=== PATIENT | male | born 1970 | race Caucasian/White ===

== ENCOUNTER 2025-06-10 12:13 | Inpatient (IN) | payer BC ==
[~2025-06-10] VITALS: Ht 175.3 cm; Wt 119.3 kg
[2025-06-10 12:16] VITALS: O2SAT 99
[2025-06-10] MEDS: ACETAMINOPHEN 500MG TABLET PO ONE (12:56)
[2025-06-10 13:24] LABS: BASOPHILS % 1.4 % (0.0-2.0); EOSINOPHILS % 1.1 % (0.0-5.0); HEMATOCRIT. 46.9 % (42.0-52.0); HEMOGLOBIN. 15.8 g/dL (14.0-18.0); LYMPHOCYTES % 25.2 % (20.0-50.0); MEAN PLATELET VOLUME 8.0 fl (7.4-10.4); MONOCYTES % 5.7 % (2.0-8.0); NEUTROPHILS % 66.6 % (40.0-76.0); PLATELET 413 x1000/uL (130-400); RED BLOOD CELL COUNT 4.49 mill/uL (4.7-6.1); RED CELL DISTRIBUTION WIDTH 14.4 % (11.6-14.6)
[2025-06-10 13:39] LABS: CREATININE 0.7 mg/dL (0.6-1.3); UREA NITROGEN BLOOD 6 mg/dL (9-23)
[2025-06-10 13:40] LABS: TROPONIN I HIGH SENSITIVITY 4 ng/L (3.0-53)
[2025-06-10 13:41] LABS: ASPARTATE AMINOTRANSFERASE 227 IU/L (<34); BILIRUBIN DIRECT 0.1 mg/dL (<=3.0)
[2025-06-10 13:42] LABS: BILIRUBIN TOTAL 0.2 mg/dL (0.1-1.0); PROTEIN TOTAL 7.0 g/dL (6.0-8.3)
[2025-06-10 13:55] LABS: INR 1.0
[2025-06-10] MEDS: IBUPROFEN 800MG TABLET PO SCH (14:15)
[2025-06-10] MEDS: MORPHINE SULFATE 4 MG/ML INJ (FOR IV/IM USE) IV ONE (15:22)
[2025-06-10] MEDS: FAMOTIDINE 20MG/2ML VIAL IV SCH (15:22)
[2025-06-10] MEDS: IOHEXOL-350 100 ML BOTTLE ONE (15:23)
[2025-06-10 15:59] LABS: TROPONIN I HIGH SENSITIVITY < 4 ng/L (3.0-53)
[2025-06-10] MEDS: ASPIRIN 325MG EC TABLET PO ONE (16:24)
[2025-06-10 16:42] LABS: BG DEOXYHEMOGLOBIN 24.6 % (0.0-5.0)
[2025-06-10] MEDS ORDERED: DIPHENHYDRAMINE 50MG/ML VIAL IV PRN (17:00)
[2025-06-10] MEDS ORDERED: LORAZEPAM 2MG/ML UD SYRINGE IV PRN (17:00)
[2025-06-10] MEDS ORDERED: DEXTROSE 50% WATER 50ML SYRINGE IV PRN (17:15)
[2025-06-10] MEDS: INSULIN LISPRO 100 UNITS/ML SUBCUT SCH (17:20)
[2025-06-10 17:46] VITALS: BP 125/94; PULSE 106; RESP 14; TEMP 37; O2SAT 91
[2025-06-10 18:34] VITALS: BP 125/94; PULSE 103; RESP 19; TEMP 37.0296
[2025-06-10 19:27] LABS: CLARITY URINE CLEAR (CLEAR); COLOR URINE YELLOW (YELLOW); GLUCOSE URINE NEGATIVE (NEGATIVE); KETONES URINE NEGATIVE (NEGATIVE); LEUKOCYTE ESTERASE URINE NEGATIVE (NEGATIVE); NITRITE URINE NEGATIVE (NEGATIVE); OCCULT BLOOD URINE NEGATIVE (NEGATIVE); PH URINE 5.5 (4.5-8.0); PROTEIN URINE 1+ (NEGATIVE); SPECIFIC GRAVITY URINE 1.051 (1.005-1.030); UROBILINOGEN URINE 0.2 E.U./dL (0.2-1.0)
[2025-06-10 20:00] VITALS: BP 147/91; PULSE 102; RESP 20; TEMP 36.9; O2SAT 93
[2025-06-10] MEDS ORDERED: LORAZEPAM 0.5MG TABLET PO PRN (20:00)
[2025-06-10 20:17] LABS: *AMPHETAMINES SCREEN URINE NEGATIVE (NEGATIVE); *BARBITURATES SCREEN URINE NEGATIVE (NEGATIVE); *BENZODIAZEPINES SCREEN URINE NEGATIVE (NEGATIVE); *COCAINE SCREEN URINE NEGATIVE (NEGATIVE); CANNABINOID URINE SCREEN NEGATIVE (NEGATIVE); ECSTASY MDMA SCREEN URINE NEGATIVE (NEGATIVE); METHADONE URINE SCREEN NEGATIVE (NEGATIVE); OPIATES URINE SCREEN PRESUMPTIVE POSITIVE (NEGATIVE); PHENCYCLIDINE URINE SCREEN NEGATIVE (NEGATIVE)
[2025-06-10] MEDS: MVI, ADULT NO.1 10 ML, FOLIC ACID 1 MG, THIAMINE HCL 100 MG in SODIUM CHLORIDE 0.9% 1,0... IV ONE (20:19)
[2025-06-10 20:23] LABS: BACTERIA URINE NONE SEEN; RBC URINE NONE SEEN /hpf (0-2); SQUAMOUS EPITHELIAL CELL URINE RARE /lpf (RARE/1+); WBC URINE 0-2 /hpf (0-2)
[2025-06-10 20:24] LABS: HYALINE CASTS URINE 0-5 /lpf; MUCUS URINE TRACE /lpf (NONE/TRACE)
[2025-06-10] MEDS: HYDROCODONE/ACETAMINOPHEN 10/325MG TABLET PO PRN (20:25)
[2025-06-10] MEDS: BLOOD SUGAR DIAGNOSTIC STRIP TEST SCH (21:00)
[2025-06-10] MEDS: ENOXAPARIN 40MG/0.4ML SYR SUBCUT SCH (21:28)
[2025-06-10] MEDS ORDERED: IOHEXOL-350 100 ML BOTTLE ONE (23:30)
[2025-06-11] VITALS: BP 172/96; PULSE 109; RESP 20; TEMP 36.6; O2SAT 94
[2025-06-11] MEDS: ONDANSETRON HCL 4MG/2ML INJ IV PRN (00:02)
[2025-06-11] MEDS: TRAMADOL 50MG TABLET PO PRN (00:29)
[2025-06-11] MEDS: CLONIDINE 0.1MG TABLET PO PRN (00:30)
[2025-06-11] MEDS: MAGNESIUM 1 G PREMIX 100 ML IV NR (02:09)
[2025-06-11 04:00] VITALS: BP 142/93; PULSE 97; RESP 18; TEMP 37; O2SAT 96
[2025-06-11 08:00] VITALS: BP 160/103; PULSE 100; RESP 14; TEMP 37.1; O2SAT 89
[2025-06-11] MEDS: LISINOPRIL 40MG TABLET PO SCH (08:21)
[2025-06-11] MEDS: AMLODIPINE 10MG TABLET PO SCH (08:21)
[2025-06-11] MEDS: LIDOCAINE 5% PATCH TOP SCH ×2 (08:22→15:12)
[2025-06-11] MEDS: MAGNESIUM OXIDE 400MG TABLET PO SCH (08:27)
[2025-06-11] MEDS: ASPIRIN 81MG EC TABLET PO SCH (10:36)
[2025-06-11] MEDS: MAGNESIUM 2 G PREMIX 50 ML IV SCH (11:28)
[2025-06-11 12:00] VITALS: BP 129/90; PULSE 92; RESP 13; TEMP 36.6; O2SAT 91
[2025-06-11] MEDS ORDERED: LORAZEPAM 2MG/ML UD SYRINGE IV PRN (14:15)
[2025-06-11] MEDS: THIAMINE HCL 200 MG in SODIUM CHLORIDE 0.9% 98 ML IV SCH (14:29)
[2025-06-11 16:00] VITALS: BP 159/111; PULSE 95; RESP 13; TEMP 36.6; O2SAT 89
[2025-06-11 20:02] VITALS: BP 144/92; PULSE 92; RESP 13; TEMP 36.8; O2SAT 90
[2025-06-12] VITALS (7 sets, daily range): BP systolic 118–150; BP diastolic 81–104; PULSE 85–97; RESP 12–18; TEMP 36.3–36.7; O2SAT 90–94
[2025-06-12 07:05] LABS: BASOPHILS % 0.5 % (0.0-2.0); EOSINOPHILS % 0.9 % (0.0-5.0); HEMATOCRIT. 43.0 % (42.0-52.0); HEMOGLOBIN. 14.7 g/dL (14.0-18.0); LYMPHOCYTES % 11.3 % (20.0-50.0); MEAN PLATELET VOLUME 8.5 fl (7.4-10.4); MONOCYTES % 5.9 % (2.0-8.0); NEUTROPHILS % 81.4 % (40.0-76.0); PLATELET 257 x1000/uL (130-400); RED BLOOD CELL COUNT 4.13 mill/uL (4.7-6.1); RED CELL DISTRIBUTION WIDTH 14.0 % (11.6-14.6)
[2025-06-12 07:09] LABS: CREATININE 0.6 mg/dL (0.6-1.3); UREA NITROGEN BLOOD 6 mg/dL (9-23)
[2025-06-12 07:11] LABS: TROPONIN I HIGH SENSITIVITY < 4 ng/L (3.0-53)
[2025-06-12] MEDS ORDERED: AMLO10TA80 PO (10:39)
[2025-06-12] MEDS ORDERED: LISI40TA21 PO (10:39)
[2025-06-12] MEDS ORDERED: ASPI-1406 PO (10:39)
[2025-06-12] MEDS ORDERED: AMLODIPINE 5MG TABLET PO SCH ×2 (21:00)
== END 2025-06-12 13:25 | disposition home or self-care (01) | DRG 897 ==
LOC: ER 13:29 → 3WST 16:00 → EDBEDREQ 16:02 → EDBEDREQTM 16:02
PROVIDERS: ADMIT Student in an Organized Health Care Education/Training Program; ATTEND Student in an Organized Health Care Education/Training Program
DX: F10.229 Alcohol dependence with intoxication, unspecified (principal); F17.210 Nicotine dependence, cigarettes, uncomplicated; I10 Essential (primary) hypertension; M25.512 Pain in left shoulder; Z79.899 Other long term (current) drug therapy; Y90.9 Presence of alcohol in blood, level not specified
CPT/HCPCS: 36415; 71045; 71275; 73030; 73060; 76700; 80048; 80076; 80305; 80320; 81003; 82375; 82550; 82803; 82962; 83036; 83735; 83880; 84484; 85025; 85379; 93005; 93306; 96374; 96375; 99285; A4565; J1308; J1650; J2270; J2405; J3411; J3475; J3490; J7030; J7050; Q9967; G0480